=== PATIENT | female | born 1980 | race Asian ===

== ENCOUNTER → 2017-12-22 | Outpatient (CLI) | payer BC ==
[~2017-12-22] MED LIST: AMOXICILLIN875 MG PO; BIRTH CONTROL PILL; NORCO 325 MG-51 TAB PO; PRENATAL1 TA1 PO; PROTONIX20 MG PO; QSYMIA PO; SYNTHROID 0.0.025 MG PO; SYNTHROID0.05 MG/TA PO; VENTOLIN0.09 MG IH
== END ==
LOC: MC.RAD 13:50
DX: N64.4 Mastodynia (principal); R20.8 Other disturbances of skin sensation

== ENCOUNTER → 2018-09-27 | Outpatient (CLI) | payer BC | LOC: COL.RAD 13:17 | DX: M25.551 Pain in right hip (principal); R10.31 Right lower quadrant pain ==

== ENCOUNTER 2020-06-02 23:05 | Emergency (ER) | payer BC ==
[~2020-06-02] VITALS: Ht 160 cm; Wt 86.4 kg
[2020-06-02 23:20] VITALS: TEMP 98
[2020-06-02] MEDS ORDERED: PEPCID 20MG TAB20 MG PO (23:22)
[2020-06-02] MEDS ORDERED: PROTONIX 40MG T40 MG PO ×2 (23:22→23:28)
[2020-06-02] MEDS ORDERED: CARAFATE 1GM1 G PO (23:23)
[2020-06-02] MEDS ORDERED: SYNTHROID 0.0.025 MG PO (23:27)
[2020-06-02] MEDS ORDERED: PROTONIX20 MG PO (23:28)
[2020-06-02] MEDS ORDERED: PROAIR HFA0.09 MG/AC IH (23:29)
[2020-06-02] MEDS ORDERED: FLOVENT DI50 MCG/Act IH (23:29)
[2020-06-03 01:12] VITALS: BP 116/79; PULSE 79
== END 2020-06-03 01:14 | disposition home or self-care (01) ==
LOC: COL.ER 23:05
DX: R51 Headache (principal); E86.0 Dehydration; J45.909 Unspecified asthma, uncomplicated; K21.9 Gastro-esophageal reflux disease without esophagitis; Z88.8 Allergy status to other drugs, medicaments and biological substances
CPT/HCPCS: J1885; J2405; J7030

== ENCOUNTER → 2021-03-13 | Outpatient (CLI) | payer BC ==
[~2021-03-13] MED LIST changes: +CARAFATE 1GM1 G PO; +FLOVENT DI50 MCG/Act IH; +PEPCID 20MG TAB20 MG PO; +PROAIR HFA0.09 MG/AC IH; +PROTONIX 40MG T40 MG PO
== END ==
LOC: MC.RAD 13:08
DX: Z12.31 Encounter for screening mammogram for malignant neoplasm of breast (principal); N63.10 Unspecified lump in the right breast, unspecified quadrant

== ENCOUNTER → 2021-03-22 | Outpatient (CLI) | payer BC | LOC: MC.RAD 11:00 | DX: N60.01 Solitary cyst of right breast (principal) ==

== ENCOUNTER → 2022-05-20 | Outpatient (CLI) | payer BC | LOC: MC.RAD 08:37 | DX: Z12.31 Encounter for screening mammogram for malignant neoplasm of breast (principal) ==

== ENCOUNTER → 2022-09-04 | Outpatient (CLI) | payer BC | LOC: COL.VAS 12:04 | DX: U09.9 Post COVID-19 condition, unspecified (principal) ==